=== PATIENT | male | born 1965 | race Caucasian/White ===

== ENCOUNTER 2017-03-22 22:31 | Emergency (ER) | payer OTHER ==
[~2017-03-22] VITALS: Ht 177.8 cm; Wt 104.5 kg
[~2017-03-22 22:31] MED LIST: BENADRYL25 MG PO; COGENTIN0.5 MG PO; HALDOL2 MG PO; INDOCIN50 MG PO; KEFLEX500 MG PO; LITHIUM CARBON300 M1 PO; LITHIUM CARBON300 MG PO; LITHIUM CARBON600 MG PO
[2017-03-22 23:32] LABS: HEMATOCRIT 39.3 % (38.0-50.0); MCH 30.7 PG (29.0-34.0); MCHC 35.1 G/DL (30.0-36.0); MCV 87.3 FL (86-99); MEAN PLAT.VOLUME 10.8 uM^3 (9.0-12.4); PLATELET COUNT 165 K/uL (156-360); RBC DIS.WIDTH-CV 12.8 % (11.8-14.6); RBC DIS.WIDTH-SD 40.9 % (39-53); WHITE BLOOD COUNT 8.7 K/uL (4.1-10.2)
[2017-03-22 23:42] LABS: CHLORIDE 110 mEq/L (99-109); POTASSIUM 2.9 mEq/L (3.7-5.4); SODIUM 144 mEq/L (136-147)
[2017-03-22 23:44] LABS: GLUCOSE 135 mg/dL (70-99)
[2017-03-22 23:45] LABS: ANION GAP 9 MEQ/L (2-14)
[2017-03-22 23:47] LABS: SERUM ETHYL ALCOHOL < 10 mg/dL
[2017-03-22 23:48] LABS: GFR ESTIMATE (CALCULATED) > 59 mL/min/
[2017-03-22 23:49] LABS: UREA NITROGEN (BUN) 11 mg/dL (9-23)
[2017-03-23 01:10] VITALS: BP 146/77
== END 2017-03-23 01:10 | disposition home or self-care (01) ==
LOC: EME → EDBD 22:31 → EME 22:31
PROVIDERS: Emergency Medicine
DX: F32.9 Major depressive disorder, single episode, unspecified (principal); Z76.5 Malingerer [conscious simulation]; T43.506A Underdosing of unspecified antipsychotics and neuroleptics, initial encounter; Z91.128 Patient's intentional underdosing of medication regimen for other reason; Z87.891 Personal history of nicotine dependence
CPT/HCPCS: 80048; 85027; 90839; 99281; 99284; G0480